=== PATIENT | female | born 1980 | race Caucasian/White ===

== ENCOUNTER 2024-04-13 16:56 | Emergency (ER) | payer BC, SELFPAY ==
[2024-04-13 16:59] VITALS: BP 141/93; PULSE 83; RESP 18; TEMP 36.7; O2SAT 97; BMI 28.9
--- NOTE | 2024-04-13 17:22 | CRLHL7_ITS ---
For Patients: As a result of the Century Cures Act, medical imaging exams and procedure reports are released immediately into your electronic medical record. You may view this report before your referring provider. If you have questions, please contact your health care provider. INDICATION: LLQ AND LEFT FLANK PAIN TECHNIQUE: CT abdomen and pelvis acquired with 93 cc Isovue 370 IV contrast. COMPARISON: March 2019. FINDINGS: Lower chest: Stable 3 millimeter middle lobe nodule dating back to 2019, statistically benign. ABDOMEN: Liver: Normal enhancement. Focal fatty infiltration adjacent to the falciform ligament. Gallbladder and biliary: Contracted gallbladder. Normal caliber bile ducts. Spleen: Normal size and enhancement. Pancreas: Normal enhancement without peripancreatic inflammatory changes or ductal dilatation. Adrenal glands: Normal adrenal glands. Kidneys and ureters: Normal enhancement. No radio-opaque calculi. No hydroureteronephrosis. GI tract: The stomach is relatively decompressed. Normal caliber small and large bowel loops. Normal appendix. Few colonic diverticula without diverticulitis. Vascular structures: Normal caliber abdominal aorta. Lymph nodes: No lymphadenopathy in the abdomen or pelvis by size criteria. Peritoneum: No free air, free fluid, or focal drainable fluid collection. PELVIS: Genitourinary system: Urinary bladder is decompressed. Hysterectomy. SKELETAL STRUCTURES AND SOFT TISSUES: Tiny fat containing umbilical hernia. IMPRESSION: No discrete acute abdominopelvic process. No obstruction. No hydroureteronephrosis. Please note that all CT scans at this facility use dose modulation, iterative reconstruction, and/or weight-based dosing when appropriate to reduce radiation dose to as low as reasonably achievable. Dictated by Charanjit Tolentino MD @ 04/13/2024 6:23:11 PM (Electronically Signed)
--- NOTE | 2024-04-13 17:25 | ED.ABDPAIN ---
HPI - Abdominal Pain General Date Seen: 04/13/24 Chief Complaint: Abdominal Pain Stated Complaint: Abdominal Pain Time Seen by Provider: 04/13/24 16:56 Source: patient Mode of arrival: ambulatory Limitations: no limitations History of Present Illness HPI narrative: Patient is a 43-year-old female with a history of hysterectomy presenting to the emergency department for left lower quadrant abdominal pain and left flank pain. She states symptoms started about 7 days ago with this left lower quadrant pain. She states she has had pain like this before and was today to constipation but usually go away after 3-4 days. Considering the pain is been persistent she went to her primary care provider to be evaluated. The provider was concerned for diverticulitis and sent her to the emergency department. At this time she states her pain is tolerable and is a 2/10 but goes up to a 7 or 8 out 10 if it left lower quadrant is palpated. Also states she has some fullness sensation in her left upper quadrant going into her back. That pain is a 6/10 when palpated. Has not had any dysuria or polyuria. No history of kidney stones or pyelonephritis. Does states she has had previous colonoscopies initially due to hemorrhoids when at that time for some polyps were found and she now gets them every 3 years. States she was due for a colonoscopy 3 years ago but it was during COVID pandemic and never got done. Does states she noticed some blood in her stool few days ago but has not had any bloody stool since. Has had multiple episodes of diarrhea. Has also had multiple episodes of vomiting over the past week. Has only vomited once today though. Did notice some bloody streaks in her vomit couple days ago after multiple episodes of vomiting. Has not had any hematemesis since then. Also states she had previous laparoscopic surgery for endometrioid is when she was 17 and had a previous bowel obstruction during her 18 years ago. Does states she has had decreased p.o. intake whenever she tries to eat anything she gets a large amount of pain in her left lower quadrant causing become nauseated and vomiting. Has not had any nausea medicine yet. Has had a couple fevers over the past few days with most recently being elevated this past Friday. Does states she feels little fatigued and having mild headache. Denies chest pain, shortness of breath, vision changes, weakness, numbness. Related Data Home Medications ?Medication ?Instructions ?Recorded ?Confirmed Repatha Syringe 04/13/24 amlodipine 5 mg tablet 5 mg PO DAILY 04/13/24 04/13/24 Previous Rx's ?Medication ?Instructions ?Recorded ondansetron 4 mg disintegrating 4 mg PO Q6H #20 tabs 04/13/24 tablet Allergies Allergy/AdvReac Type Severity Reaction Status Date / Time metronidazole AdvReac Intermediate Severe Verified 04/13/24 17:51 dizziness Cat hair extract Allergy Intermediate Watery Uncoded 04/13/24 17:51 eyes, trouble breathing roses Allergy Intermediate Watery Uncoded 04/13/24 17:51 eyes, trouble breathing Review of Systems Status of ROS Reports: 10 or more systems reviewed and unremarkable except as noted in History and below PFSH PFS Medical History Prinzmetal angina ?I20.1 - Angina pectoris with documented spasm (ICD-10) History of gestational diabetes ?Z86.32 - Personal history of gestational diabetes (ICD-10) Acute sinusitis ?J01.90 - Acute sinusitis, unspecified (ICD-10) Surgical History History of tonsillectomy ?Z90.89 - Acquired absence of other organs (ICD-10) History of colonoscopy with polypectomy (08/06/18) ?Z98.890 - Other specified postprocedural states (ICD-10) ?Z86.010 - Personal history of colonic polyps (ICD-10) History of bilateral breast reduction surgery ?Z98.890 - Other specified postprocedural states (ICD-10) History of abdominoplasty ?Z98.890 - Other specified postprocedural states (ICD-10) Family History Mother Arthritis Father Lung cancer Other Colonic polyp Social History Narrative: has 2 children non-smoker Exam Narrative: Exam Narrative: Const: Well-nourished, Well-developed, in mild distress Eyes: PERRL, no conjunctival injection, and symmetrical lids HENT: Atraumatic external nose and ears. Moist mucous membranes. Neck: Symmetric, trachea midline, No thyromegaly. CVS: RRR, No murmurs or gallops. Peripheral pulses 2+ and equal in all extremities RESP: Unlabored respiratory effort. Clear to auscultation bilaterally. GI: Tenderness noted to left lower quadrant with left CVA tenderness. No tenderness noted rest of abdomen. No distention noted. MSK:Extremities w/o deformity, Normal Active ROM Skin: Warm, Dry. No rashes or lesions. Neuro: Normal Muscle tone, No focal neurological deficits. Psych: Awake, Alert, & Oriented x3. Appropriate mood and affect. Const: Vital Signs, click to edit/add: Vital Signs - 24 hr 04/13/24 16:59 Temperature 98.0 F Pulse Rate [Right Pulse Oximeter] 83 Respiratory Rate 18 Blood Pressure [Ri ght Upper Arm] 141/93 H Pulse Oximetry 97 Oxygen Delivery Me thod Room Air Course Vital Signs Vital signs: Initial Vital Signs Temperature 98.0 F 04/13/24 16:59 Temperature Source Temporal Artery Scan 04/13/24 16:59 Pulse Rate 83 04/13/24 16:59 Respiratory Rate 18 04/13/24 16:59 Blood Pressure 141/93 H 04/13/24 16:59 Blood Pressure Mean 109 H 04/13/24 16:59 Blood Pressure Position Sitting 04/13/24 16:59 Pulse Oximetry 97 04/13/24 16:59 Oxygen Delivery Method Room Air 04/13/24 16:59 Vital Signs Temperature 98.0 F 04/13/24 16:59 Pulse Rate 83 04/13/24 16:59 Respiratory Rate 18 04/13/24 16:59 Blood Pressure 141/93 H 04/13/24 16:59 Pulse Oximetry 97 04/13/24 16:59 Oxygen Delivery Method Room Air 04/13/24 16:59 Temperature 98.0 F 04/13/24 16:59 Pulse Rate 83 04/13/24 16:59 Respiratory Rate 18 04/13/24 16:59 Blood Pressure 141/93 H 04/13/24 16:59 Pulse Oximetry 97 04/13/24 16:59 Oxygen Delivery Method Room Air 04/13/24 16:59 Medications Administered Medications: Discontinued Medications Generic Name Dose Route Start Last Admin Trade Name Freq PRN Reason Stop Dose Admin Sodium Chloride 500 mls @ 1,000 mls/hr 10/29/24 17:22 04/13/24 17:36 0.9 % Sodium Chloride 500 Ml IV 04/13/24 17:51 1,000 mls/hr .Q30M ONE Administration Ondansetron HCl 4 mg 04/13/24 17:22 04/13/24 17:36 Ondansetron 2 Mg/Ml Inj IVP 04/13/24 17:23 4 mg ONCE ONE Administration MDM - Abdominal Pain MDM Narrative Medical decision making narrative: Patient is a 43-year-old female presenting for abdominal pain. Considering the location of the pain diverticulitis is high Judy differential. With the CVA tenderness she could also associated pyelonephritis. Based on her description of the pain a kidney stone seems less likely but still possibility. There is also possibility for an SBO. Pancreatitis, appendicitis, gallbladder liver disease are less likely concerning location of the pain. Patient's vital signs are stable and no signs of emergent issue such as a AAA rupture or solid organ rupture at this time. Will give a 500 mL of fluid and some Zofran. States he does not need any pain medication at this time. Will also order a CT with IV contrast along with CMP, CBC, urinalysis. Patient's lab work returned showing no concerning abnormalities. No clear signs of a UTI. No electrolyte abnormalities or acute kidney injury. CT scan also returned showing no acute concerning abnormalities. No signs of constipation. Cannot say for certain why she is having these abdominal pains but could be a combination of gastroenteritis versus colitis. Overall she is doing well though and I believe she is safe for discharge. Will prescribe her Zofran. She is agreeable to this plan. Lab Data Labs: Lab Results 04/13/24 04/13/24 Range/Units 17:20 17:56 WBC 11.21 H (4.50-11.00) K/uL RBC 4.55 (4.00-5.20) m/uL Hgb 13.7 (12.0-16.0) gm/dL Hct 41.0 (33.0-51.0) % MCV 90 (80-100) fL MCH 30 (26-34) pg MCHC 33 (32-36) gm/dL RDW Coeff of Rachel 12.2 (11.5-15.5) % Plt Count 215 (140-440) K/uL Neut % (Auto) 54.7 (42.0-72.0) % Lymph % (Auto) 36.8 (20-44) % [place] % (Auto) 6.9 (0.0-11.0) % Eos % (Auto) 1.0 (0.0-7.0) % Baso % (Auto) 0.3 (0.0-3.0) % Neut # (Auto) 6.10 (1.7-7.0) K/uL Lymph # (Auto) 4.10 H (0.90-2.90) K/uL [place] # (Auto) 0.80 (0.00-0.90) K/UL Eos # (Auto) 0.10 (0.00-0.50) K/uL Baso # (Auto) 0.00 (0.00-0.30) K/uL Abs Immat Gran (auto) 0.00 (0.00-0.30) K/uL Imm/Tot Granulo (auto) 0.3 % Sodium 136 (135-149) mmol/L Potassium 3.7 (3.6-5.1) mmol/L Chloride 103 (96-114) mmol/L Carbon Dioxide 25 (20-32) mmol/L Anion Gap 8 (7-15) mEq/L BUN 12 (5-24) mg/dL Creatinine 1.2 (0.5-1.5) mg/dL Estimated Creat Clear 59.72 Estimated GFR 57 ml/min Glucose 94 (60-115) mg/dL Calcium 8.9 (8.4-10.6) mg/dL Total Bilirubin 0.3 (0.1-1.5) mg/dL AST 17 (12-35) U/L ALT 14 (4-35) U/L Alkaline Phosphatase 69 (40-150) U/L Total Protein 7.1 (6.0-8.3) g/dL Albumin 4.3 (3.3-5.0) g/dL Urine Color Dark yellow (Yellow) Urine Appearance Clear (Clear) Urine pH 6.5 (5.0-8.5) Ur Specific [place] 1.025 (1.000-1.030) Urine Protein Trace A (Negative) Urine Glucose (UA) Negative (Negative) Urine Ketones Trace A (Negative) Urine Blood Negative (Negative) Urine Nitrite Negative (Negative) Urine Bilirubin Negative (Negative) Urine Urobilinogen 0.2 (0.2-1.0) Ur Leukocyte Esterase Trace A (Negative) Urine RBC 0-2 (0-2) Urine WBC 0-2 (0-5) Ur Squamous Epith Cells Moderate A (None-Few) Urine Bacteria None (None) Urine Mucus Moderate A (None) Imaging Data CT scan abdomen and pelvis: Radiologist's impression: No discrete acute abdominopelvic process. No obstruction. No hydroureteronephrosis. Please note that all CT scans at this facility use dose modulation, iterative reconstruction, and/or weight-based dosing when appropriate to reduce radiation dose to as low as reasonably achievable. Dictated by Charanjit Tolentino MD @ 04/13/2024 6:23:11 PM Discharge Plan Discharge Clinical Impression: Abdominal pain Qualifiers: Abdominal location: left lower quadrant Qualified Code(s): R10.32 - Left lower quadrant pain Instructions: Abdominal Pain (ED) Additional Instructions: I cannot say for certain was causing abdominal pain at this time by do not see any concerning abnormalities in your imaging or lab work. I do recommend you follow-up with your provider though for a colonoscopy. Return to emergency department for new or worsening symptoms. Use the Zofran as needed for nausea. Prescriptions: New ondansetron 4 mg tablet,disintegrating 4 mg PO Q6H Qty: 20 0RF No Action Repatha Syringe amlodipine 5 mg tablet 5 mg PO DAILY Follow Up/Referrals: Nicolás Vargas MD [Primary Care Provider] - Stand Alone Forms: [employer] Info Instructions
[2024-04-13] MEDS: 0.9 % SODIUM CHLORIDE 500 ML 500 ML 1000 ML IV (17:36)
[2024-04-13] MEDS: ONDANSETRON 2 MG/ML inj 4 MG IVP (17:36)
[2024-04-13 17:38] LABS: Appearance Urine Clear (Clear); Bilirubin Urine Negative (Negative); Blood Urine Negative (Negative); Color Urine Dark yellow (Yellow); Glucose Urine Negative (Negative); Ketones Urine Trace (Negative); Leukocyte Esterase Urine Trace (Negative); Nitrite Urine Negative (Negative); Protein Urine Trace (Negative); Specific Gravity Urine 1.025 (1.000-1.030); Urobilinogen Urine 0.2 (0.2-1.0); pH Urine 6.5 (5.0-8.5)
[2024-04-13 17:52] LABS: Mucus Urine Moderate; RBC Urine 0-2 (0-2); Squamous Epithelial Cell Urine Moderate (None-Few); WBC Urine 0-2 (0-5)
[2024-04-13 17:59] LABS: Basophils Percent Auto 0.3 % (0.0-3.0); Hemoglobin* 13.7 gm/dL (12.0-16.0); Immature Granulocytes Pct Auto 0.3 %; Lymphocytes Percent Auto 36.8 % (20-44); Mean Corpuscular HGB Conc 33 gm/dL (32-36); Mean Corpuscular Hemoglobin 30 pg (26-34); Mean Corpuscular Volume 90 fL (80-100); Monocytes Percent Auto 6.9 % (0.0-11.0); Neutrophils Percent Auto 54.7 % (42.0-72.0); Platelet Count* 215 K/uL (140-440); RDW Coefficient of Variation % 12.2 % (11.5-15.5); Red Blood Count 4.55 m/uL (4.00-5.20); White Blood Count* 11.21 K/uL (4.50-11.00)
[2024-04-13 18:04] LABS: Slide Review Reflex No
[2024-04-13 18:11] LABS: Chloride* 103 mmol/L (96-114)
[2024-04-13 18:12] LABS: Albumin* 4.3 g/dL (3.3-5.0); Potassium* 3.7 mmol/L (3.6-5.1); Sodium* 136 mmol/L (135-149)
[2024-04-13 18:14] LABS: Anion Gap 8 mEq/L (7-15); Aspartate Amino Transferase* 17 U/L (12-35); Bilirubin Total* 0.3 mg/dL (0.1-1.5); Carbon Dioxide* 25 mmol/L (20-32); Creatinine* 1.2 mg/dL (0.5-1.5); Est. Creatinine Clearance* 59.72; Estimated Glomerular Filt Rate 57 ml/min; Total Protein* 7.1 g/dL (6.0-8.3)
[2024-04-13 18:15] LABS: Alanine Aminotransferase* 14 U/L (4-35); Alkaline Phosphatase* 69 U/L (40-150); Blood Urea Nitrogen* 12 mg/dL (5-24); Calcium* 8.9 mg/dL (8.4-10.6); Glucose* 94 mg/dL (60-115)
== END 2024-04-13 18:59 | disposition home or self-care (01) ==
PROVIDERS: Emergency Provider Student in an Organized Health Care Education/Training Program; PCP Family Medicine
DX: R10.32 Left lower quadrant pain (principal)
CPT/HCPCS: 36415; 74177; 80053; 81001; 85025; 87086; 96374; 99283; 99284; J2405; J7030; Q9967